=== PATIENT | female | born 1950 | race Native Hawaiian/Other Pacific Islander ===

== ENCOUNTER → 2016-04-16 | Outpatient (CLI) | payer MEDICARE, OTHER ==
--- NOTE | 2016-04-17 10:03 | MM ---
Reason for exam: screening (asymptomatic). Last mammogram was performed 1 year and 6 months ago. History: Patient is postmenopausal. Family history of breast cancer in sister. Physical Findings: A clinical breast exam by your physician is recommended on an annual basis and results should be correlated with mammographic findings. MG 3D Screening Mammo W/Cad Bilateral CC and MLO view(s) were taken. Prior study comparison: September 30, 2014, bilateral MG screening mammo w CAD. April 27, 2013, bilateral digital screening mammo w/CAD. The breast tissue is almost entirely fat. Finding: There are typically benign calcifications in both breasts. No significant changes in finding since September 30, 2014 and April 27, 2013. ASSESSMENT: Benign, BI-RAD 2 RECOMMENDATION: Routine screening mammogram of both breasts in 1 year.
== END | disposition home or self-care (01) ==
LOC: RADMAMWWP 13:44
PROVIDERS: ATTEND Family Medicine
DX: Z12.31 Encounter for screening mammogram for malignant neoplasm of breast (principal); Z80.3 Family history of malignant neoplasm of breast
CPT/HCPCS: 77063; G0202

== ENCOUNTER 2016-08-14 14:41 | Emergency (ER) | payer MEDICARE, OTHER ==
[2016-08-14] MEDS ORDERED: MORPHINE SULFATE 10 MG/ML SYRINGE IM STA (15:44)
--- NOTE | 2016-08-14 15:52 | ED ---
Head Injury HPI - General Chief complaint: Head Injury Stated complaint: headache and neck pain Time Seen by Provider: 08/14/16 15:28 Source: patient, RN notes reviewed Mode of arrival: ambulatory Limitations: no limitations - History of Present Illness Initial comments: Patient is a 66-year-old female presents to the emergency room for evaluation head and neck pain. Patient states last night she was sitting on her porch and a piece of a wood board from the ceiling fell and hit her on the head. Patient states the piece of the wood board hit her on the left side of her head. Patient denies loss of consciousness. Patient states that after she got hit in the head, she fell backwards down a step and hit her lower back/coccyx area. Patient states she felt okay after the incident and felt she did not need to come to the hospital. Patient states the pain was worse when she woke up this morning. Patient states she's having a headache and neck pain. Patient also stated she's having low back pain. Patient does states she has a history of osteoarthritis which she takes tramadol for. Patient states she took 2 tramadol today with normal relief of symptoms. Patient denies any numbness or tingling going down her arms or legs. Patient denies saddle anesthesia. Patient denies urinary or fecal incontinence. Patient denies any changes in vision. Patient denies ringing in ears. Patient states she does feel slightly nauseous. - Related Data Home Medications Medication Instructions Recorded Confirmed DULoxetine HCL [Cymbalta] 20 mg PO BID 10/03/14 08/14/16 clonazePAM [KlonoPIN] 0.5 - 1 mg PO QAM 10/03/14 08/14/16 rOPINIRole HCL [Requip] 0.5 mg PO HS 10/03/14 08/14/16 clonazePAM [Clonazepam] 3 mg PO HS 02/02/16 08/14/16 traMADol HCl [Ultram] 50 mg PO Q6H PRN 02/02/16 08/14/16 Artificial Tears-Hypromellose 1 drops BOTH EYES BID 02/21/16 08/14/16 [Artificial Tear Drops] Aspirin/Acetaminophen/Caffeine 1 tab PO ONCE PRN 08/14/16 08/14/16 [Excedrin Extra Strength Caplet] Bismuth Subsalicylate 30 mg PO DAILY PRN 08/14/16 08/14/16 [Pepto-Bismol] Cholecalciferol (Vitamin D3) 2,000 unit PO DAILY 08/14/16 08/14/16 [Vitamin D3] Ferrous Sulfate [Feosol] 325 mg PO DAILY 08/14/16 08/14/16 Allergies/Adverse reactions: Allergies Allergy/AdvReac Type Severity Reaction Status Date / Time clarithromycin [From Biaxin] Allergy Unknown Verified 08/14/16 16:32 metronidazole [From Flagyl] Allergy Unknown Verified 08/14/16 16:32 Milk Containing Products Allergy Unknown Verified 08/14/16 16:32 [Dairy] paroxetine HCl [From Paxil] Allergy Unknown Verified 08/14/16 16:32 pregabalin [From Lyrica] Allergy Unknown Verified 08/14/16 16:32 venlafaxine HCl Allergy Unknown Verified 08/14/16 16:32 [From Effexor] vilazodone [From Viibryd] Allergy Unknown Verified 08/14/16 16:32 Review of Systems ROS Statement: Those systems with pertinent positive or pertinent negative responses have been documented in the HPI. ROS Other: All systems not noted in ROS Statement are negative. Past Medical History Past Medical History: GERD/Reflux, Osteoarthritis (OA), Sleep Apnea/CPAP/BIPAP Additional Past Medical History / Comment(s): OSTEOPENIA. BULGING DISC BACK, CPAP BROKEN. hx ANEMIA. Restless leg syndrome. ulcer, hiatal hernia, fatigue , osteopenia History of Any Multi-Drug Resistant Organisms: None Reported Past Surgical History: Cholecystectomy, Joint Replacement, Tubal Ligation Additional Past Surgical History / Comment(s): D&C'S. TOTAL RT KNEE. REPAIR NASAL FX. EXC BARTHOLIN CYST. COLONOSCOPY, EGD. conization; cataracts Past Anesthesia/Blood Transfusion Reactions: Previous Problems w/ Anesthesia Additional Past Anesthesia/Blood Transfusion Reaction / Comment(s): FELT COLONOSCOPY SCOPE PREVIOUSLY. Past Psychological History: Anxiety, Panic Disorder Smoking Status: Former smoker Past Alcohol Use History: None Reported Additional Past Alcohol Use History / Comment(s): SMOKED OCC, X1 PER DAY OR SO, ON/OFF SINCE . QUIT MONTHS AGO Past Drug Use History: None Reported - Past Family History Sister(s) Family Medical History: Cancer General Exam - General Exam Comments Initial Comments: Sitting on exam bed, c-collar on, no acute distress Limitations: no limitations General appearance: alert, in no apparent distress Expanded Head exam: Present: laceration (0.5cm abrasion over left posterior parietal scalp. No bleeding. No surrounding hematoma. ) Eye exam: Present: normal appearance, PERRL, EOMI Pupils: Present: normal accommodation ENT exam: Present: normal exam Neck exam: Present: normal inspection Respiratory exam: Present: normal lung sounds bilaterally. Absent: respiratory distress Cardiovascular Exam: Present: regular rate, normal rhythm, normal heart sounds Back exam: Present: vertebral tenderness (Lumbosacral spine and coccyx) Neurological exam: Present: alert, oriented X3, CN II-XII intact, normal gait Expanded Neurological exam: Present: inattentive Patient oriented to: Present: person, place, time Speech: Present: fluid speech Cranial nerves: EOM's Intact: Normal, Facial Sensation: Normal Sensory exam: Upper Extremity Light Touch: Normal, Lower Extremity Light Touch: Normal Motor strength exam: RUE: 5, LUE: 5, RLE: 5, LLE: 5 Eye Response: (4) open spontaneously Motor Response: (6) obeys commands Verbal Response: (5) oriented Psychiatric exam: Present: normal affect, normal mood Skin exam: Present: warm, dry, intact, normal color. Absent: rash Course Vital Signs 08/14/16 08/14/16 15:20 17:07 Temperature 98.3 F 98.1 F Pulse Rate 82 71 Respiratory 20 18 Rate Blood Pressure 136/74 126/57 O2 Sat by Pulse 98 95 Oximetry Medical Decision Making - Medical Decision Making Patient is a 66-year-old female since emergency room for evaluation of head pain , neck pain and low back pain. Brain/C-spine CT shows no acute findings. X- ray showed no acute findings. Advised patient to continue taking her home pain medications and to follow up with primary care provider. Patient states she understands everything that was discussed with her. Return parameters discussed. Case discussed with Dr. Wells. - Radiology Data Radiology results: report reviewed, image reviewed Disposition Clinical Impression: Closed head injury, Lumbar contusion, Contusion of coccyx, Cervical strain Disposition: HOME SELF-CARE Condition: Good Instructions: Cervical Strain (ED), Concussion (ED), Head Injury (ED) Additional Instructions: Ice on and off for 10-15 minutes for the next 24-48 hours. Continue taking at home pain medications as needed. Please follow-up with primary care provider in 24-48 hours for reevaluation. If new symptoms develop or symptoms worsen, please return to the ER. Referrals: Vanessa Merritt MD [Primary Care Provider] - 1-2 days Time of Disposition: 16:58
--- NOTE | 2016-08-14 16:30 | CT ---
EXAMINATION TYPE: CT brain cspine wo con DATE OF EXAM: 08/14/2016 4:14 PM COMPARISON: 05/18/2013 HISTORY: 66-year-old female with fall today. Head and neck pain CT DLP: 1402.3 mGycm Automated exposure control for dose reduction was used. Technique: Examination of the head was done in axial plane without intravenous contrast. Coronal and sagittal reconstructions performed. CT of the cervical spine was obtained in axial plane without intravenous injection of contrast mater ial. Coronal and sagittal reformatted images were obtained from the axial views for evaluation of f ractures, spinal alignment and canal. FINDINGS: Head: There is no evidence of acute intracranial hemorrhage, acute ischemic changes, mass, mass-effect, or extra-axial fluid collection. There is no effacement of cerebral sulci or basal subarachnoid cister ns. There is no hydrocephalus. There is no midline shift. Carey-white matter distinction is preserv ed. Rightward nasal septal deviation. Orbits and globes are intact. Paranasal sinuses and mastoid air jose ls well pneumatized. No calvarial fracture. Cervical spine: Straightening of the normal cervical lordosis. The alignment of the cervical spine is normal on coron al and reformatted images. There is no cranial vertebral abnormality. Fracture of the cervical spine is not seen. Moderate to advanced multilevel discogenic degenerative change as well as facet and unco vertebral joint degenerative change. This results in moderate left C6-C7 neural foraminal stenosis an d variable mild neural foraminal narrowing at other levels. There is no central spinal canal stenosis . Sagittal and coronal reformatted images confirm above findings. COMBINED IMPRESSION: 1. No acute intracranial abnormality seen. 2. No acute fracture or malalignment of the cervical spine. Moderate to advanced multilevel spondylot ic change.
--- NOTE | 2016-08-14 16:33 | XR ---
EXAMINATION TYPE: 5 views lumbar spine. 3. View sacrum and coccyx DATE OF EXAM: 08/14/2016 4:18 PM COMPARISON: NONE HISTORY: 66-year-old female pain after fall yesterday FINDINGS: Lumbar spine: There is degenerated levoconvex scoliosis of the lumbar spine with multilevel moderate to severe disc /endplate degenerative change characterized by disc space narrowing, endplate sclerosis, disc vacuum. The degree of scoliotic curvature makes assessment of some of the mid lumbar vertebral body heights difficult. No verónica vertebral compression collapse. There is hypertrophic facet arthropathy throughou t with grade 1 retrolisthesis at L2-L3 and L3-L4. Degenerative thinning of the interspinous ligaments . Sacrum and coccyx: The SI joints appear symmetric and intact. Arcuate lines of the sacrum are smooth and continuous. The re is minimal posterior positioning of the coccygeal tip in relation to the remainder of the sacrum a nd coccyx seen on the lateral view. IMPRESSION: 1. Lumbar spine: Degenerative levoconvex scoliosis with grade 1 retrolistheses at L2-L3 and L3-L4, Ba astrup's disease, and no evident vertebral compression collapse. 2. Sacrum and coccyx: Slight posterior positioning of the coccygeal tip suggests an age indeterminate tailbone fracture.
[2016-08-14 17:08] VITALS: BP 126/57; PULSE 71; RESP 18; TEMP 98.1
== END 2016-08-14 17:08 | disposition home or self-care (01) ==
LOC: EC 14:41
DX: S01.01XA Laceration without foreign body of scalp, initial encounter (principal); S16.1XXA Strain of muscle, fascia and tendon at neck level, initial encounter; S30.0XXA Contusion of lower back and pelvis, initial encounter; F41.9 Anxiety disorder, unspecified; G25.81 Restless legs syndrome; Z96.651 Presence of right artificial knee joint; Z87.891 Personal history of nicotine dependence; Z79.899 Other long term (current) drug therapy; Z88.1 Allergy status to other antibiotic agents; Z88.8 Allergy status to other drugs, medicaments and biological substances; Z91.011 Allergy to milk products; W20.8XXA Other cause of strike by thrown, projected or falling object, initial encounter; W18.09XA Striking against other object with subsequent fall, initial encounter; Y93.89 Activity, other specified
CPT/HCPCS: 72110; 72220; 72125; 70450; 99284; 96372; J2270

== ENCOUNTER → 2018-06-04 | Outpatient (CLI) | payer MEDICARE ==
--- NOTE | 2018-06-06 08:24 | MM ---
Reason for exam: screening (asymptomatic). Last mammogram was performed 2 years and 2 months ago. History: Patient is postmenopausal. Family history of breast cancer in sister. Physical Findings: A clinical breast exam by your physician is recommended on an annual basis and results should be correlated with mammographic findings. MG 3D Screening Mammo W/Cad Bilateral CC and MLO view(s) were taken. Prior study comparison: April 16, 2016, bilateral MG 3d screening mammo w/cad. September 30, 2014, bilateral MG screening mammo w CAD. There are scattered fibroglandular densities. Asymmetric density superior left breast unchanged from 2017. No significant changes when compared with prior studies. ASSESSMENT: Benign, BI-RAD 2 RECOMMENDATION: Routine screening mammogram of both breasts in 1 year.
== END | disposition home or self-care (01) ==
LOC: RADMAMWWP 13:26
PROVIDERS: ATTEND Family Medicine
DX: Z12.31 Encounter for screening mammogram for malignant neoplasm of breast (principal)
CPT/HCPCS: 77063; 77067

== ENCOUNTER → 2020-03-03 | Outpatient (CLI) | payer MEDICARE, OTHER ==
[2020-03-03 11:23] LABS: Basophils % (A) 1 %; Eosinophils # (A) 0.2 k/uL (0-0.7); Eosinophils % (A) 3 %; HCT 41.6 % (34.0-46.0); Lymphocytes # (A) 1.4 k/uL (1.0-4.8); Lymphocytes % (A) 23 %; MCH 31.7 pg (25.0-35.0); MCHC 33.7 g/dL (31.0-37.0); MCV 94.2 fL (80.0-100.0); Mean Platelet Volume 6.8; Monocytes # (A) 0.3 k/uL (0-1.0); Monocytes % (A) 6 %; Neutrophils # (A) 3.9 k/uL (1.3-7.7); Neutrophils % (A) 67 %; Platelet Count 298 k/uL (150-450); RBC 4.41 m/uL (3.80-5.40); RDW 12.4 % (11.5-15.5); WBC 5.9 k/uL (3.8-10.6)
[2020-03-03 20:03] LABS: African American GFR (CKD) 74.6 (60.0-200.0); Albumin 4.3 g/dL (3.80-4.90); Albumin/Globulin Ratio 1.95 (1.60-3.17); Anion Gap 8.5 mmol/L (4.00-12.00); BUN/Creat Ratio 13.33 Ratio (12.00-20.00); Calcium 9.3 mg/dL (8.7-10.3); Carbon Dioxide 24.5 mmol/L (21.6-31.8); Chol/HDL Ratio 2.53; Globulin 2.2 g/dL (1.6-3.3); LDL Cholesterol,Calculated 96.8 mg/dL (0.0-131.0); Non-African American GFR(CKD) 64.3 (60.0-200.0); Potassium 4.1 mmol/L (3.5-5.5); Total Bilirubin 0.5 mg/dL (0.2-1.2); Total Protein 6.5 g/dL (6.2-8.2); VLDL Calculation 16.2 mg/dL (5.00-40.00)
== END | disposition home or self-care (01) ==
LOC: LABWHC1 10:52
PROVIDERS: ATTEND Family Medicine
DX: Z00.00 Encounter for general adult medical examination without abnormal findings (principal); F41.9 Anxiety disorder, unspecified; K52.9 Noninfective gastroenteritis and colitis, unspecified; R74.8 Abnormal levels of other serum enzymes; M54.5 Low back pain; E55.9 Vitamin D deficiency, unspecified
CPT/HCPCS: 36415; 80053; 80061; 82306; 84443; 85025

== ENCOUNTER 2020-09-28 10:07 | Day surgery (SDC) | payer MEDICARE, OTHER ==
[2020-09-23 14:36] VITALS: BMI 31.1
[~2020-09-28 10:07] MED LIST: LACTATED RINGERS 1,000 ML IV SCH; LIDOCAINE 1% (10MG/ML) FOR IV START INTRADERMA PRN
[2020-09-28 10:41] VITALS: TEMP 97.4
[2020-09-28] MEDS ORDERED: LIDOCAINE 1% INJ 10MG/ML (20 ML MDV) ONE (10:55)
[2020-09-28] MEDS ORDERED: PROPOFOL 10 MG/ML 20 ML VIAL IV ONE (10:55)
--- NOTE | 2020-09-28 11:12 | P.PCN ---
Date of Procedure: 09/28/20 Procedure(s) Performed: Brief history: Patient is a pleasant 70-year-old white female scheduled for an elective upper endoscopy as well as colonoscopy as a part of evaluation of GERD/abdominal bloating and chronic diarrhea for the last 5 years duration Procedure performed: Esophagogastroduodenoscopy with biopsy Colonoscopy with biopsy Preoperative diagnosis: GERD/abdominal bloating Chronic diarrhea Anesthesia: MAC Procedure: After informed consent was obtained from the patient was brought into the endoscopy unit and IV sedation was administered by anesthesia under continuous monitoring. Initially upper endoscopy was done. The Olympus GF 160 video endoscope was inserted inserted into the mouth and esophagus intubated without any difficulty and was gradually advanced into the stomach and duodenum and carefully examined. The bulb and second part of the duodenum appeared normal. The scope was then withdrawn into the stomach adequately insufflated with air and upon careful examination the antrum had mild gastritis and biopsies were done from this area. The body, cardia and fundus appeared normal. The scope was then withdrawn into the esophagus. moderate size hiatal hernia noted. The GE junction was located at 34 cm to the incisors. It appeared regular with no erythema erosions or ulcerations. Rest of the esophagus appeared normal. Patient tolerated the procedure well. At this time the patient continued to remain sedation. Initial digital rectal examination was normal. Olympus CF 160 video colonoscope was then inserted into the rectum and gradually advanced to the cecum without any difficulty. Careful examination was performed as the scope was gradually being withdrawn. The prep was excellent. The cecum, ascending colon, transverse colon, descending colon, sigmoid colon and rectum appeared normal. Random biopsies were done from ascending and descending colon to rule out microscopic/collagenous colitis.scattered sigmoid diverticulosis seen. Retroflexion was performed in the rectum and no lesions were noted. Patient tolerated the procedure well. Impression: 1. Upper endoscopy revealed moderate sessile hernia and mild antral gastritis 2. Colonoscopy was essentially within normal limits with no evidence of colitis or colorectal neoplasia. Scattered sigmoidal diagnosis. Recommendations: Findings of this examination were discussed with the patient as well as her family. She was advised to follow with the biopsy results. be seen in office in 2-3 weeks.
[2020-09-28 11:40] VITALS: BP 119/78; PULSE 73; RESP 16
== END 2020-09-28 12:36 | disposition home or self-care (01) ==
LOC: ORWHC2ENDO 10:07
PROVIDERS: ATTEND Internal Medicine Gastroenterology
DX: K52.9 Noninfective gastroenteritis and colitis, unspecified (principal); K21.9 Gastro-esophageal reflux disease without esophagitis; K29.50 Unspecified chronic gastritis without bleeding; K62.89 Other specified diseases of anus and rectum; G47.33 Obstructive sleep apnea (adult) (pediatric); K44.9 Diaphragmatic hernia without obstruction or gangrene; Z79.899 Other long term (current) drug therapy; Z88.1 Allergy status to other antibiotic agents; Z88.8 Allergy status to other drugs, medicaments and biological substances
CPT/HCPCS: 88305; 45380; 43239; J2001; J2704

== ENCOUNTER → 2021-04-04 | Outpatient (CLI) | payer MEDICARE, OTHER ==
--- NOTE | 2021-04-04 16:32 | US ---
EXAMINATION TYPE: US pelvic complete DATE OF EXAM: 04/04/2021 COMPARISON: NONE CLINICAL HISTORY: E27.0 Adrenocortical overactivity, R61 Excessive sweating. elevated estrogen, sweat ing, LMP 15yrs ago, known fibroids TECHNIQUE: TA. Transabdominal sonographic images of the pelvis were acquired. Date of LMP: 15yrs ago EXAM MEASUREMENTS: Uterus: 7.0 x 5.2 x 3.5 cm Endometrial Stripe: not seen Right Ovary: not seen Left Ovary: not seen 1. Uterus: Anteverted heterogeneous with multiple fibroids, largest left fundal = 2.3 x 2.3 x 2.1c m, second left = 1.5 x 1.4 x 1.1cm 2. Endometrium: undiscernible due to multiple fundal fibroids 3. Right Ovary: Obscured by overlying bowel gas, atrophic 4. Left Ovary: Obscured by overlying bowel gas, atrophic 5. Bilateral Adnexa: wnl 6. Posterior cul-de-sac: wnl Markedly heterogeneous somewhat prominent anteverted uterus for patient's age with scattered poorly d efined hypoechoic lesions felt to reflect intrauterine fibroids measuring up to 2.3 cm long axis. Poo r visualization of the endometrial stripe suspected atrophic. No free fluid. Neither ovary clearly seen. No suspicious adnexal masses noted. IMPRESSION: No suspicious ovarian or adnexal mass. Markedly heterogeneous somewhat prominent uterus f or patient's chronologic age is suspicious for underlying intrauterine fibroids. Correlate clinically .
== END | disposition home or self-care (01) ==
LOC: RADUSWWP 15:29
PROVIDERS: ATTEND Family Medicine
DX: E27.0 Other adrenocortical overactivity (principal); R61 Generalized hyperhidrosis
CPT/HCPCS: 76856

== ENCOUNTER → 2021-04-13 | Outpatient (CLI) | payer MEDICARE, OTHER ==
--- NOTE | 2021-04-13 14:51 | XR ---
EXAMINATION TYPE: XR abdomen complete w decub DATE OF EXAM: 04/13/2021 CLINICAL HISTORY: Abdominal pain radiating to the back. TECHNIQUE: Supine, upright, and left side down lateral decubitus views of the abdomen are obtained. COMPARISON: None. FINDINGS: Scattered gas is seen in non-distended small bowel loops. Gas and fecal material is seen in non-distended colon. There is levoconvex scoliosis centered about L1 level. Scattered bilateral pe lvic phleboliths. No free air. Lung bases are clear. Multilevel moderate to severe spurring and disc space narrowing in the thoracolumbar spine greatest right T12-L1 level through the left L4-L5 levels. IMPRESSION: Overall nonobstructive bowel gas pattern.
--- NOTE | 2021-04-13 15:20 | XR ---
EXAMINATION TYPE: XR chest 1V DATE OF EXAM: 04/13/2021 COMPARISON: NONE HISTORY: Left-sided pain. TECHNIQUE: Single frontal view of the chest is obtained. FINDINGS: There is no suspicious focal air space opacity, pleural effusion, or pneumothorax seen. T he cardiac silhouette size is within normal limits. Retrocardiac opacity consistent with moderate siz e hiatal hernia is present. Underlying scoliosis is seen. IMPRESSION: Chronic changes without acute process.
== END | disposition home or self-care (01) ==
LOC: RADXRMAIN 13:56
PROVIDERS: ATTEND Nurse Practitioner Family
DX: R52 Pain, unspecified (principal)
CPT/HCPCS: 71045; 74021

== ENCOUNTER → 2021-06-02 | Outpatient (CLI) | payer MEDICARE, OTHER ==
--- NOTE | 2021-06-02 15:31 | US ---
EXAMINATION TYPE: US carotid duplex BILAT DATE OF EXAM: 06/02/2021 COMPARISON: NONE CLINICAL HISTORY: M62.81 MUSCLE WEAKNESS,R55 PRE SYNCOPE,R51.9 HEADACHE. Pt states dizziness EXAM MEASUREMENTS: RIGHT: Peak Systolic Velocity (PSV) cm/sec ----- Right CCA: 61.6 ----- Right ICA: 72.1 ----- Right ECA: 105.1 ICA/CCA ratio: 1.2 RIGHT: End Diastole cm/sec ----- Right CCA: 16.2 ----- Right ICA: 27.6 ----- Right ECA: 7.3 LEFT: Peak Systolic Velocity (PSV) cm/sec ----- Left CCA: 71.2 ----- Left ICA: 88.6 ----- Left ECA: 97.4 ICA/CCA ratio: 1.2 LEFT: End Diastole cm/sec ----- Left CCA: 20.6 ----- Left ICA: 39.1 ----- Left ECA: 8.4 VERTEBRALS (direction of flow): Right Vertebral: Antegrade Left Vertebral: Antegrade Rhythm: Normal No significant stenosis seen IMPRESSION: No evidence for hemodynamically significant stenosis. Criteria for Assigning % of Stenosis / Diameter reduction (Estimation based on the indirect measurements of the internal carotid artery velocities (ICA PSV). 1. Normal (no stenosis)=ICA PSV < 125 cm/s: ratio < 2.0: ICA EDV<40 cm/s. 2. Less than 50% stenosis=ICA PSV < 125 cm/s: ratio < 2.0: ICA EDV<40 cm/s. 3. 50 to 69% stenosis=ICA PSV of 125 to 230 cm/s: ration 2.0 ? 4.0: ICA EDV 40-100 cm/s. 4. Greater than 70% stenosis to near occlusion= ICA PSV > 230 cm/s: ratio > 4.0: ICA EDV > 100 cm/s. 5. Near occlusion= ICA PSV velocities may be low or undetectable: variable ratio and ICA EDV. 6. Total occlusion=unable to detect flow.
--- NOTE | 2021-06-02 16:45 | MR ---
EXAMINATION TYPE: MR brain wo con DATE OF EXAM: 06/02/2021 COMPARISON: CT brain August 14, 2016 HISTORY: Dizziness, headaches, weakness. Hx head trauma, back of head, 5 yrs ago. TECHNIQUE: Multiplanar, multisequence imaging of the brain and brainstem is performed without IV cont rast. FINDINGS: Diffusion weighted images demonstrate no evidence of a recent infarct or other diffusion abnormality. There is mild ventricular and sulcal prominence reduced with bilateral frontal lobes. Scattered areas of T2 hyperintensity is seen throughout the white matter bilaterally. T2 Star weighted images show n o suspicious intraparenchymal blood products. Midline structures demonstrate normal morphology. The craniocervical junction appears within normal limits. Normal vascular flow voids are present. The visualized sinuses are clear and the globes are i ntact. Nasal septum deviated to right of midline. IMPRESSION: Mild diffuse cerebral atrophy greatest in the bilateral frontal lobes and mild nonspecifi c white matter changes most likely on the basis of product of chronic small vessel ischemic change in patient of this age.
== END | disposition home or self-care (01) ==
LOC: RADUSWWP 14:49
PROVIDERS: ATTEND Family Medicine
DX: G31.9 Degenerative disease of nervous system, unspecified (principal); R55 Syncope and collapse; R51.9 Headache, unspecified
CPT/HCPCS: 70551; 93880

== ENCOUNTER → 2021-08-30 | Outpatient (CLI) | payer MEDICARE, OTHER ==
[2021-08-30 22:25] LABS: Basophils # (A) 0.05 X 10*3/uL (0.00-0.10); Basophils % (A) 0.8 %; Eosinophils # (A) 0.17 X 10*3/uL (0.04-0.35); Eosinophils % (A) 2.7 %; HCT 39.3 % (37.2-46.3); HGB 12.6 g/dL (12.0-15.0); Immature Grans, Automated 0.3 %; Lymphocytes # (A) 1.74 X 10*3/uL (0.90-5.00); Lymphocytes % (A) 27.2 %; MCH 30.9 pg (27.0-32.0); MCHC 32.1 g/dL (32.0-37.0); MCV 96.3 fL (80.0-97.0); Mean Platelet Volume 9.8 fL (9.5-12.2); Monocytes # (A) 0.45 X 10*3/uL (0.20-1.00); NRBC Per 100 WBC 0 /100 WBCS (0.0-0.0); Neutrophils # (A) 3.96 X 10*3/uL (1.80-7.70); Platelet Count 305 X 10*3/uL (140-440); RBC 4.08 X 10*6/uL (4.10-5.20); RDW 11.9 % (11.5-14.5); WBC 6.39 X 10*3/uL (4.50-10.00)
== END | disposition home or self-care (01) ==
LOC: LABPAT 13:43
PROVIDERS: ATTEND Surgery
DX: Z01.812 Encounter for preprocedural laboratory examination (principal); K21.00 Gastro-esophageal reflux disease with esophagitis, without bleeding
CPT/HCPCS: 85025

== ENCOUNTER → 2021-10-26 | Outpatient (CLI) | payer MEDICARE, OTHER ==
[2021-10-26 19:21] LABS: % Iron Saturation 21.13 (12.00-45.00); T4, Free (Free Thyroxine) 0.91 ng/dL (0.800-1.800)
[2021-10-26 19:38] LABS: Protein, Total 6.6 g/dL (6.2-8.2)
[2021-10-27 13:15] LABS: Albumin 4.04 g/dL (3.80-4.90); Gamma Globulin 0.74 g/dL (0.70-1.50)
== END | disposition home or self-care (01) ==
LOC: LABWHC1 13:07
PROVIDERS: ATTEND Psychiatry & Neurology Neurology
DX: G62.9 Polyneuropathy, unspecified (principal)
CPT/HCPCS: 36415; 82607; 83540; 83550; 84165; 84207; 84439; 84443; 84466; 84481

== ENCOUNTER → 2021-12-21 | Outpatient (CLI) | payer MEDICARE, OTHER ==
--- NOTE | 2021-12-22 07:09 | MM ---
Reason for Exam: Screening (asymptomatic). Last mammogram was performed 3 year(s) and 6 month(s) ago. Patient History: Menarche at age 11. First Full-Term at age 20. Postmenopausal. Sister had breast cancer. Risk Values: Jess 5 year model risk: 3.4%. NCI Lifetime model risk: 8.6%. Prior Study Comparison: 09/30/2014 Bilateral Screening Mammogram, [facility]. 04/16/2016 Bilateral Screening Mammogram, [facility]. 06/04/2018 Bilateral Screening Mammogram, [facility]. Tissue Density: The breast tissue is heterogeneously dense. This may lower the sensitivity of mammography. Findings: Analyzed By CAD. There is no suspicious group of microcalcifications or new suspicious mass in either breast. Overall Assessment: Benign, BI-RAD 2 Management: Screening Mammogram of both breasts in 1 year. A clinical breast exam by your physician is recommended on an annual basis and results should be correlated with mammographic findings. Electronically signed and approved by: Nirmal Harry M.D. Radiologis
== END | disposition home or self-care (01) ==
LOC: RADMAMWWP 13:19
PROVIDERS: ATTEND Family Medicine
DX: Z12.31 Encounter for screening mammogram for malignant neoplasm of breast (principal)
CPT/HCPCS: 77063; 77067

== ENCOUNTER 2022-02-13 21:38 | Emergency (ER) | payer MEDICARE, OTHER ==
--- NOTE | 2022-02-13 22:44 | CT ---
EXAMINATION TYPE: CT brain kristina lomas con DATE OF EXAM: 02/13/2022 COMPARISON: 08/14/2016 HISTORY: Patient tripped and fell forward injurying her nose and she has neck pain. CT DLP: 1021.2 mGycm Automated exposure control for dose reduction was used. There is some cerebral cortical atrophy. There is no mass effect or midline shift. No sign of intracr anial hemorrhage. The calvarium is intact. There is normal aeration of the mastoid sinuses. The cervical vertebra have normal alignment. No compression fracture. There is degenerative disc spac e narrowing from 4 to T1 with spurring of the endplates. No subluxation. There is multilevel cervical facet arthropathy. IMPRESSION: Multilevel cervical spondylotic changes. No fracture. No significant change compared to old exam. 3. Bilateral feet. No acute intracranial abnormality. No change compared to old exam.
--- NOTE | 2022-02-13 22:47 | CT ---
EXAMINATION TYPE: CT facial bones wo con DATE OF EXAM: 02/13/2022 COMPARISON: None HISTORY: Patient tripped and fell forward injurying her nose and she has neck pain. CT DLP: 1021.2 mGycm Automated exposure control for dose reduction was used. Images obtained from the bottom of the mandible to the top of the frontal sinuses with no contrast. The mandibular ring is intact. The temporomandibular joints are intact. Zygomatic arches appear jazmyne l. Maxilla is intact. Orbital margins are intact. No retro-orbital mass. No evidence of orbital blowo ut fracture. There is slight deformity of the nasal bone and displacement to the left side. The maxil bernice spine is intact. Sella turcica is normal. The parotid glands are symmetric. Submandibular salivary glands are symmetric. There is fairly normal aeration of the paranasal sinuses. IMPRESSION: Minimally displaced nasal bone fracture.
--- NOTE | 2022-02-13 23:06 | ED ---
Fall HPI - General Chief Complaint: Fall Stated Complaint: Fall,Broken nose Time Seen by Provider: 02/13/22 21:57 Source: patient Mode of arrival: ambulatory - History of Present Illness Initial Comments: This is a pleasant 72-year-old female who presents to the right arm after standing up at home and tripping over her pants bed. Patient was holding a laptop in her hand at that time. Patient states she also has a chronic gait problems when she is currently seeing urology for. Patient fell forward onto a carpet and struck her nose. She recalls the entire event. There is no loss of consciousness, no vomiting episodes, no significant headache. She is complaining of some neck pain and some pain to her nose. There is a very superficial abrasion overlying her nose. Tetanus is up-to-date. Patient does take aspirin but no other anticoagulation therapy. No headache, no fever or chills, no changes in vision or hearing, no sore throat or difficulty with speech, no neck pain, no chest pain or shortness of breath, no abdominal pain, no nausea or vomiting, no changes in urination or bowel movements, no numbness or tingling, no extremity pain, no skin rashes or lesio ns. Past medical, surgical, social, and family history reviewed. Complaint: fall - Related Data Home Medications Medication Instructions Recorded Confirmed DULoxetine HCL [Cymbalta] 20 mg PO HS 10/03/14 11/10/21 rOPINIRole HCL [Requip] 1 mg PO HS 10/03/14 11/10/21 traMADol HCl [Ultram] 50 mg PO BID PRN 02/02/16 11/10/21 Pantoprazole [Protonix] 40 mg PO BID 09/23/20 11/10/21 Aspirin [Adult Low Dose Aspirin EC] 81 mg PO DAILY 07/28/21 11/10/21 Melatonin 5 mg PO HS 07/31/21 11/10/21 Previous Rx's Medication Instructions Recorded Acetaminophen Tab [Tylenol] 650 mg PO Q6HR PRN tab 11/15/21 Allergies Allergy/AdvReac Type Severity Reaction Status Date / Time buspirone Allergy Unknown Verified 02/13/22 21:48 cephalexin Allergy Unknown Verified 02/13/22 21:48 clarithromycin [From Biaxin] Allergy Unknown Verified 02/13/22 21:48 gabapentin Allergy Unknown Verified 02/13/22 21:48 metronidazole [From Flagyl] Allergy Unknown Verified 02/13/22 21:48 paroxetine HCl [From Paxil] Allergy Unknown Verified 02/13/22 21:48 pregabalin [From Lyrica] Allergy Unknown Verified 02/13/22 21:48 venlafaxine HCl Allergy Unknown Verified 02/13/22 21:48 [From Effexor] vilazodone [From Viibryd] Allergy Unknown Verified 02/13/22 21:48 Review of Systems ROS Statement: Those systems with pertinent positive or pertinent negative responses have been documented in the HPI. ROS Other: All systems not noted in ROS Statement are negative. Past Medical History Past Medical History: Asthma, Cancer, Fibromyalgia, GERD/Reflux, Hearing Disorder / Deafness, Osteoarthritis (OA), Pneumonia, Rheumatoid Arthritis (RA), Skin Disorder, Sleep Apnea/CPAP/BIPAP Additional Past Medical History / Comment(s): Skin cancer removed from R buttock, past and recent MRSA skin infections, gastric ulcer, hiatal hernia, IBS, frequent diarrhea, bleeding hemorrhoids, diverticular disease, past anemia once, back pain, bulging discs, scoliosis, RLS, osteopenia, chronic fatigue, bronchitis, JAYLENE/no longer uses device, arthritis bilateral hands, sinus issues, bilateral tinnitis, hyperhydrosis (to see dematologist soon) and neuropathy in legs/gait dysfunction/being worked up by neurologist, FALLS History of Any Multi-Drug Resistant Organisms: MRSA Date of last positivie culture/infection: 03/25/2019 MDRO Source:: Stomach Past Surgical History: Cholecystectomy, Joint Replacement, Tubal Ligation Additional Past Surgical History / Comment(s): Total R knee arthroplasty, repair nasal fracture, excision bartholian cyst, D&Cs, cervical conization, EGD, colonoscopy, bilateral cataract removals. Past Anesthesia/Blood Transfusion Reactions: Previous Problems w/ Anesthesia Additional Past Anesthesia/Blood Transfusion Reaction / Comment(s): FELT COLONOSCOPY SCOPE with last colonoscopy. Past Psychological History: Anxiety, Panic Disorder Smoking Status: Former smoker Past Alcohol Use History: None Reported Past Drug Use History: None Reported - Past Family History Sister(s) Family Medical History: Cancer Additional Family Medical History / Comment(s): Younger sister had breast cancer. Son(s) Family Medical History: Cancer Additional Family Medical History / Comment(s): Testicular cancer Mother Family Medical History: Diabetes Mellitus Father Family Medical History: Dementia General Exam - General Exam Comments Initial Comments: Patient in no distress, cranial nerves II through XII intact. Patient alert and oriented 4. Limitations: no limitations General appearance: alert, in no apparent distress Head exam: Present: atraumatic, normocephalic, normal inspection Eye exam: Present: normal appearance, PERRL, EOMI. Absent: scleral icterus, conjunctival injection, periorbital swelling ENT exam: Present: normal oropharynx, mucous membranes dry, mucous membranes moist, TM's normal bilaterally, normal external ear exam. Absent: normal exam (Patient has a very mild abrasion overlying the bridge of her nose. Minimal tenderness. No distress placement. No evidence of septal hematoma. No epistaxis) Neck exam: Present: normal inspection, tenderness (Patient has mild bilateral cervical paraspinal tenderness. No crepitus, no step-off, no break in skin integrity.), full ROM. Absent: meningismus, lymphadenopathy Respiratory exam: Present: normal lung sounds bilaterally. Absent: respiratory distress, wheezes, rales, rhonchi, stridor, chest wall tenderness, accessory muscle use, decreased breath sounds, prolonged expiratory Cardiovascular Exam: Present: regular rate, normal rhythm, normal heart sounds. Absent: systolic murmur, diastolic murmur, rubs, gallop, clicks GI/Abdominal exam: Present: soft, normal bowel sounds. Absent: distended, tenderness, guarding, rebound, rigid Extremities exam: Present: normal inspection, full ROM, normal capillary refill. Absent: tenderness, pedal edema, joint swelling, calf tenderness Back exam: Present: normal inspection Neurological exam: Present: alert, oriented X3, CN II-XII intact Psychiatric exam: Present: normal affect, normal mood Skin exam: Present: warm, dry, intact, normal color. Absent: rash Course Vital Signs 02/13/22 21:48 Temperature 97.9 F Pulse Rate 88 Respiratory 16 Rate Blood Pressure 140/65 O2 Sat by Pulse 98 Oximetry Medical Decision Making - Medical Decision Making Patient presented after a mechanical fall. Nondisplaced nasal bone fracture with no other significant injuries. Discussed head injury instructions in detail. We'll have the patient follow-up with ENT. Patient has Tylenol and tramadol at home. I advised the patient to use her cane or walker at all times. Patient was told to return to the ER for any signs or symptoms worsen. Told to return immediately if any other problems arise. All questions answered. Treatment plan discussed. Patient in agreement Every effort has been made to ensure accuracy of this dictation. However, due to the limitations of electronic medical records and dictation devices, errors in charting still occur. Drawer In Jacquard Loom Dr. Ramirez - Radiology Data Radiology results: report reviewed (I did interpret the computed tomography scan of the cervical spine, brain, and facial bones itself. Patient does have evidence of a nondisplaced nasal bone fracture. Cervical DJD. No other acute findings noted. Concur with radiology interpretation.), image reviewed Disposition Clinical Impression: Nasal bone fracture, Cervical strain, acute, Closed head injury, Fall Disposition: HOME SELF-CARE Instructions (If sedation given, give patient instructions): Cervical Strain (ED), Nasal Fracture (ED), Fall Prevention for Older Adults (ED), Head Injury (ED) Additional Instructions: Follow-up with your regular physician as directed. Return to the ER immediately if any symptoms worsen, new symptoms arise, or any other problems develop. Is patient prescribed a controlled substance at d/c from ED?: No Referrals: Reinaldo Easton MD [STAFF PHYSICIAN] - 02/16/22 (Follow-up when possible within the next 7 days) Time of Disposition: 23:05
[2022-02-13 23:22] VITALS: BP 135/74; PULSE 74; RESP 14; TEMP 97.6
== END 2022-02-13 23:33 | disposition home or self-care (01) ==
LOC: EC 21:38
DX: S02.2XXA Fracture of nasal bones, initial encounter for closed fracture (principal); S16.1XXA Strain of muscle, fascia and tendon at neck level, initial encounter; S09.90XA Unspecified injury of head, initial encounter; J45.909 Unspecified asthma, uncomplicated; K21.9 Gastro-esophageal reflux disease without esophagitis; M19.90 Unspecified osteoarthritis, unspecified site; G47.30 Sleep apnea, unspecified; F41.9 Anxiety disorder, unspecified; Z87.891 Personal history of nicotine dependence; Z79.83 Long term (current) use of bisphosphonates; Z79.899 Other long term (current) drug therapy; Z79.82 Long term (current) use of aspirin; Z88.8 Allergy status to other drugs, medicaments and biological substances; Z88.1 Allergy status to other antibiotic agents; Z88.9 Allergy status to unspecified drugs, medicaments and biological substances; Z88.6 Allergy status to analgesic agent; W18.40XA Slipping, tripping and stumbling without falling, unspecified, initial encounter
CPT/HCPCS: 70450; 70486; 72125; 99284

== ENCOUNTER 2023-03-14 15:13 | Emergency (ER) | payer MEDICARE, OTHER ==
[2023-03-14 15:32] VITALS: BP 163/77; PULSE 86; RESP 18; TEMP 99.1
--- NOTE | 2023-03-14 16:34 | ED ---
General Adult HPI - General Chief complaint: Allergic Reaction Stated complaint: Allergic Reaction Time Seen by Provider: 03/14/23 16:06 Source: patient, RN notes reviewed Mode of arrival: ambulatory Limitations: no limitations - History of Present Illness Initial comments: Patient is a 73-year-old female presented ER with chief complaint of lip tingling. Patient states she was diagnosed with COVID on 02/28/23. Patient was prescribed Paxlovid and finished her course of antibiotics on 03/05/23. She reports since stopping that medication she's been having this tingling/ burning sensation in her mouth. She states she also believes that her cheeks have been slightly swollen since finishing Paxlovid. She also reports cold sores and a white plaque on her tongue daily. She has been scraping it off and it returns within a few hours. Patient reports that she is still having a dry cough and postnasal drip. Patient endorses mild shortness of breath when coughing but denies any chest pain, fevers, night sweats, chills, current shortness of breath. Patient denies any difficulty breathing or handling her own secretions. - Related Data Home Medications Medication Instructions Recorded Confirmed DULoxetine HCL [Cymbalta] 20 mg PO HS 10/03/14 11/10/21 rOPINIRole HCL [Requip] 1 mg PO HS 10/03/14 11/10/21 traMADol HCl [Ultram] 50 mg PO BID PRN 02/02/16 11/10/21 Pantoprazole [Protonix] 40 mg PO BID 09/23/20 11/10/21 Aspirin [Adult Low Dose Aspirin EC] 81 mg PO DAILY 07/28/21 11/10/21 Melatonin 5 mg PO HS 07/31/21 11/10/21 Previous Rx's Medication Instructions Recorded Acetaminophen Tab [Tylenol] 650 mg PO Q6HR PRN tab 11/15/21 Nystatin 100,000 Unit/ml Susp 5 ml PO QID #200 ml 03/14/23 [Mycostatin Oral Susp] Allergies Allergy/AdvReac Type Severity Reaction Status Date / Time buspirone Allergy Unknown Verified 03/14/23 15:19 cephalexin Allergy Unknown Verified 03/14/23 15:19 clarithromycin [From Biaxin] Allergy Unknown Verified 03/14/23 15:19 gabapentin Allergy Unknown Verified 03/14/23 15:19 metronidazole [From Flagyl] Allergy Unknown Verified 03/14/23 15:19 paroxetine HCl [From Paxil] Allergy Unknown Verified 03/14/23 15:19 pregabalin [From Lyrica] Allergy Unknown Verified 03/14/23 15:19 venlafaxine HCl Allergy Unknown Verified 03/14/23 15:19 [From Effexor] vilazodone [From Viibryd] Allergy Unknown Verified 03/14/23 15:19 Review of Systems ROS Statement: Those systems with pertinent positive or pertinent negative responses have been documented in the HPI. ROS Other: All systems not noted in ROS Statement are negative. Past Medical History Past Medical History: Asthma, Cancer, Fibromyalgia, GERD/Reflux, Hearing Disorder / Deafness, Osteoarthritis (OA), Pneumonia, Rheumatoid Arthritis (RA), Skin Disorder, Sleep Apnea/CPAP/BIPAP Additional Past Medical History / Comment(s): Skin cancer removed from R buttock, past and recent MRSA skin infections, gastric ulcer, hiatal hernia, IBS, frequent diarrhea, bleeding hemorrhoids, diverticular disease, past anemia once, back pain, bulging discs, scoliosis, RLS, osteopenia, chronic fatigue, bronchitis, JAYLENE/no longer uses device, arthritis bilateral hands, sinus issues, bilateral tinnitis, hyperhydrosis (to see dematologist soon) and neuropathy in legs/gait dysfunction/being worked up by neurologist, FALLS History of Any Multi-Drug Resistant Organisms: MRSA Date of last positivie culture/infection: 03/25/2019 MDRO Source:: Stomach Past Surgical History: Cholecystectomy, Joint Replacement, Tubal Ligation Additional Past Surgical History / Comment(s): Total R knee arthroplasty, repair nasal fracture, excision bartholian cyst, D&Cs, cervical conization, EGD, colonoscopy, bilateral cataract removals. Past Anesthesia/Blood Transfusion Reactions: Previous Problems w/ Anesthesia Additional Past Anesthesia/Blood Transfusion Reaction / Comment(s): FELT COLONOSCOPY SCOPE with last colonoscopy. Past Psychological History: Anxiety, Panic Disorder Smoking Status: Former smoker Past Alcohol Use History: None Reported Past Drug Use History: None Reported - Past Family History Sister(s) Family Medical History: Cancer Additional Family Medical History / Comment(s): Younger sister had breast cancer. Son(s) Family Medical History: Cancer Additional Family Medical History / Comment(s): Testicular cancer Mother Family Medical History: Diabetes Mellitus Father Family Medical History: Dementia General Exam Limitations: no limitations General appearance: alert, in no apparent distress ENT exam: Present: normal exam, normal oropharynx (Slight white patches on tongue), mucous membranes moist, TM's normal bilaterally, normal external ear exam Neck exam: Present: normal inspection. Absent: tenderness, meningismus, lymphadenopathy Respiratory exam: Present: normal lung sounds bilaterally. Absent: respiratory distress, wheezes, rales, rhonchi, stridor Cardiovascular Exam: Present: regular rate, normal rhythm, normal heart sounds. Absent: systolic murmur, diastolic murmur, rubs, gallop, clicks Neurological exam: Present: alert, oriented X3, CN II-XII intact Psychiatric exam: Present: normal affect, normal mood Skin exam: Present: warm, dry, intact, normal color. Absent: rash Course Vital Signs 03/14/23 15:16 Temperature 99.1 F Pulse Rate 86 Respiratory 18 Rate Blood Pressure 163/77 O2 Sat by Pulse 98 Oximetry Medical Decision Making - Medical Decision Making Was pt. sent in by a medical professional or institution (Dr. PA, RESEARCH ATTORNEY, urgent care, hospital, or retirement...) When possible be specific @ -PCP as she may be having an allergic reaction Did you speak to anyone other than the patient for history (EMS, parent, family, police, friend...)? What history was obtained from this source @ -No Did you review nursing and triage notes (agree or disagree)? Why? @ -I reviewed and agree with nursing and triage notes Were old charts reviewed (outside hosp., previous admission, EMS record, old EKG, old radiological studies, urgent care reports/EKG's, retirement records)? Report findings @ -No old charts were reviewed Differential Diagnosis (chest pain, altered mental status, abdominal pain women, abdominal pain men, vaginal bleeding, weakness, fever, dyspnea, syncope, headache, dizziness, GI bleed, back pain, seizure, CVA, palpatations, mental health, musculoskeletal)? @ -Trigeminal neuralgia, dental infection, allergic reaction, oral candidas EKG interpreted by me (3pts min.). @ -None X-rays interpreted by me (1pt min.). @ -None done CT interpreted by me (1pt min.). @ -None done U/S interpreted by me (1pt. min.). @ -None done What testing was considered but not performed or refused? (CT, X-rays, U/S, labs)? Why? @ -None What meds were considered but not given or refused? Why? @ -None Did you discuss the management of the patient with other professionals (professionals i.e. , PA, RESEARCH ATTORNEY, lab, RT, psych nurse, social and human services assistant, bicycle fitter, teacher, trust officer, caser in)? Give summary @ -No Was smoking cessation discussed for >3mins.? @ -No Was critical care preformed (if so, how long)? @ -No Were there social determinants of health that impacted care today? How? (Homelessness, low income, unemployed, alcoholism, drug addiction, transportation, low edu. Level, literacy, decrease access to med. care, [place] [facility], rehab)? @ -No Was there de-escalation of care discussed even if they declined (Discuss DNR or withdrawal of care, Hospice)? DNR status @ -No What co-morbidities impacted this encounter? (DM, HTN, Smoking, COPD, CAD, Cancer, CVA, ARF, Chemo, Hep., AIDS, mental health diagnosis, sleep apnea, morbid obesity)? @ -None Was patient admitted / discharged? Hospital course, mention meds given and route, prescriptions, significant lab abnormalities, going to OR and other pertinent info. @ -Discharged. Patient is a 73-year-old female presented ER chief complaint of a tingling/burning sensation in her mouth. Upon examination, patient's vital signs are stable. Physical exam was significant for few white patches on tongue. Lungs clear bilaterally. Patient not in acute respiratory distress and able to speak without difficulty. I discussed with patient that I believe this is thrush. I advised her to continue cleaning her mouth multiple times a day. Instructed to change her toothbrush. Patient will be prescribed nystatin oral suspension. I discussed with patient on proper use of medication. Return parameters were discussed. Patient be discharged in stable condition with follow-up to PCP. Patient's past understanding and agreement with care plan. Undiagnosed new problem with uncertain prognosis? @ -No Drug Therapy requiring intensive monitoring for toxicity (Heparin, Nitro, Insulin, Cardizem)? @ -No Were any procedures done? @ -No Diagnosis/symptom? @ -Oral candidiasis Acute, or Chronic, or Acute on Chronic? @ -Acute Uncomplicated (without systemic symptoms) or Complicated (systemic symptoms)? @ -Uncomplicated Side effects of treatment? @ -No Exacerbation, Progression, or Severe Exacerbation? @ -No Poses a threat to life or bodily function? How? (Chest pain, [place], [place], pneumonia, PE, COPD, DKA, ARF, appy, cholecystitis, CVA, Diverticulitis, Homicidal, Suicidal, threat to staff... and all critical care pts) @ -Unlikely Disposition Clinical Impression: Oral candidiasis Disposition: HOME SELF-CARE Condition: Stable Instructions (If sedation given, give patient instructions): Oral Candidiasis (ED) Additional Instructions: Please return to the Emergency Department if symptoms worsen or any other concerns. Prescriptions: Nystatin 100,000 Unit/ml Susp [Mycostatin Oral Susp] 5 ml PO QID #200 ml Is patient prescribed a controlled substance at d/c from ED?: No Referrals: Sagrario Monzon MD [Primary Care Provider] - 1-2 days Time of Disposition: 16:34
== END 2023-03-14 16:41 | disposition home or self-care (01) ==
LOC: EC 15:13
DX: B37.0 Candidal stomatitis (principal); J45.909 Unspecified asthma, uncomplicated; G47.30 Sleep apnea, unspecified; K21.9 Gastro-esophageal reflux disease without esophagitis; Z79.82 Long term (current) use of aspirin; Z86.59 Personal history of other mental and behavioral disorders; Z87.891 Personal history of nicotine dependence; Z79.899 Other long term (current) drug therapy; Z88.8 Allergy status to other drugs, medicaments and biological substances; Z88.1 Allergy status to other antibiotic agents
CPT/HCPCS: 99283

== ENCOUNTER → 2023-06-19 | Outpatient (CLI) | payer MEDICARE, OTHER ==
--- NOTE | 2023-06-19 13:18 | US ---
EXAMINATION TYPE: US venous doppler duplex LE BI DATE OF EXAM: 06/19/2023 10:31 AM COMPARISON: NONE CLINICAL INDICATION: Female, 73 years old with history of M79.89 LEG SWELLING; bilat foot/ankle swell ing SIDE PERFORMED: Bilateral TECHNIQUE: The lower extremity deep venous system is examined utilizing real time linear array sonog ivan with graded compression, doppler sonography and color-flow sonography. VESSELS IMAGED: Common Femoral Vein Deep Femoral Vein Greater Saphenous Vein * Femoral Vein Popliteal Vein Small Saphenous Vein * Proximal Calf Veins (* superficial vessels) Right Leg: Negative for DVT Left Leg: Negative for DVT exam slightly limited by edema IMPRESSION: 1. Bilateral lower extremity ultrasound negative for deep venous thrombosis.
== END | disposition home or self-care (01) ==
LOC: RADUSWWP 09:53
PROVIDERS: ATTEND Family Medicine
DX: M79.89 Other specified soft tissue disorders (principal)
CPT/HCPCS: 93970